=== PATIENT | male | born 1965 | race Caucasian/White ===

== ENCOUNTER 2023-10-10 06:28 | Day surgery (SDC) | payer BC ==
[~2023-10-10 06:28] MED LIST: Midazolam 1 MG/ML 2 ML SDV ONE; fentaNYL 100 MCG/2 ML SDV ONE
[2023-10-10] MEDS ORDERED: Midazolam 1 MG/ML 2 ML SDV IV ONE (06:29)
[2023-10-10] MEDS ORDERED: fentaNYL 100 MCG/2 ML SDV IV ONE (06:29)
[2023-10-10] MEDS: Dextrose 5%-0.45% NaCl 1,000 ML IV SCH (06:51)
[2023-10-10] MEDS: fentaNYL 100 MCG/2 ML SDV IV ONE ×2 (07:51→07:52)
[2023-10-10] MEDS: Midazolam 1 MG/ML 2 ML SDV IV ONE ×2 (07:52→07:53)
[2023-10-10 09:28] VITALS: BP 104/72; PULSE 49
== END 2023-10-10 09:35 | disposition home or self-care (01) ==
LOC: DL.ENDO 06:28
PROVIDERS: ATTEND Internal Medicine Gastroenterology
DX: K29.50 Unspecified chronic gastritis without bleeding (principal); K31.9 Disease of stomach and duodenum, unspecified; K21.9 Gastro-esophageal reflux disease without esophagitis; K31.7 Polyp of stomach and duodenum; F32.A Depression, unspecified
CPT/HCPCS: 43239; 87077; J2250; J3010; J7799